=== PATIENT | female | born 1945 | race Caucasian/White ===

== ENCOUNTER 2020-11-16 09:44 | Day surgery (SDC) | payer MEDICARE, MEDICAID ==
[2020-11-10 12:05] LABS: Hemoglobin 14.9 g/dL (12.0-16.0); Mean Corpuscular HGB CONC 33.5 G/DL (32.0-36.0); Mean Corpuscular Hemoglobin 33.3 PG (27.0-33.0); Mean Corpuscular Volume 99.3 fl (80.0-100.0); Mean Platelet Volume 12.3 fl (7.4-10.4); Platelet Count 197 10x3/uL (130-400); RBC Distribution Width 12.4 % (11.5-14.5); Red Blood Cell (RBC) Count 4.48 10x6/uL (3.90-5.20); White Blood Cell (WBC) Count 6.4 10x3/uL (4.5-11.0)
[2020-11-10 22:45] LABS: SARS-CoV-2 MS2 Positive; SARS-CoV-2 N Gene Negative; SARS-CoV-2 S Gene Negative; SARS-CoV-2 by NAA Not Detected (NotDetected); SARS-CoV-2 orf1ab Negative
[2020-11-15 10:52] VITALS: BMI 27.4
[2020-11-16] MEDS ORDERED: Glycopyrrolate 0.2 MG/ML 5 ML SYRINGE ONE (09:52)
[2020-11-16] MEDS ORDERED: Lidocaine 1% PF 5 ML VIAL ONE (09:52)
[2020-11-16] MEDS ORDERED: Labetalol HCl 100 MG/20 ML VIAL ONE (09:52)
[2020-11-16] MEDS ORDERED: PROPOFOL 200 MG/20 ML VIAL ONE (09:52)
[2020-11-16] MEDS ORDERED: Ondansetron PF 4 MG/2 ML Vial ONE (09:52)
[2020-11-16] MEDS ORDERED: Rocuronium Bromide 10 MG/ML (10ML VIAL) ONE (09:52)
[2020-11-16] MEDS ORDERED: ePHEDrine 50 MG/ML VIAL ONE (09:52)
[2020-11-16] MEDS ORDERED: Dexamethasone 20 MG/5 ML VIAL ONE (09:52)
[2020-11-16] MEDS ORDERED: Gabapentin 300 MG CAP ONE (10:22)
[2020-11-16] MEDS ORDERED: Famotidine/PF 20 mg/2ml Vial ONE (10:23)
[2020-11-16] MEDS ORDERED: CeleCOXIB 100 MG CAP ONE (10:23)
[2020-11-16] MEDS ORDERED: Fentanyl 100 MCG/2 ML VIAL ONE (12:02)
[2020-11-16] MEDS ORDERED: HYDROmorphone 0.5 MG/0.5 ML SYRINGE ONE (12:02)
[2020-11-16] MEDS ORDERED: Lidocaine 1% w/Epinephrine 1:100K 20 ML VIAL ONE (12:11)
[2020-11-16] MEDS ORDERED: Bupivacaine 0.25% HCL 30 ML VIAL ONE (12:11)
[2020-11-16] MEDS ORDERED: Meperidine HCl/PF 25 MG/ML VIAL SLOW IVP PRN (14:29)
[2020-11-16] MEDS ORDERED: Promethazine HCl 25 MG/ML VIAL SLOW IVP PRN (14:29)
[2020-11-16] MEDS ORDERED: Ondansetron HCl/PF 4 MG/2 ML Vial IVP PRN (14:29)
[2020-11-16] MEDS ORDERED: HYDROmorphone 2 MG/ML VIAL SLOW IVP PRN (14:29)
[2020-11-16] MEDS ORDERED: Bisacodyl 10 MG SUPP PR PRN (15:15)
[2020-11-16] MEDS ORDERED: diphenhydrAMINE 25 MG CAP PO PRN (15:15)
[2020-11-16] MEDS ORDERED: Acetaminophen 325 MG TAB PO PRN (15:15)
[2020-11-16] MEDS ORDERED: Simethicone Chewable 80 MG TAB PO PRN (15:15)
[2020-11-16] MEDS ORDERED: Ondansetron PF 4 MG/2 ML Vial IVP PRN (15:15)
[2020-11-16] MEDS ORDERED: Morphine 2 MG/ML VIAL SLOW IVP PRN (15:15)
[2020-11-16] MEDS ORDERED: Zolpidem Tartrate 5 MG TAB PO PRN (15:18)
--- NOTE | 2020-11-16 17:36 | EKG ---
Test Reason : PREOP Blood Pressure : / mmHG Vent. Rate : 067 BPM Atrial Rate : 067 BPM P-R Int : 136 ms QRS Dur : 084 ms QT Int : 420 ms P-R-T Axes : 040 -19 042 degrees QTc Int : 443 ms Normal sinus rhythm Normal ECG Confirmed by Fanta SANTORO ([id number]) on 11/16/2020 5:35:48 PM Referred By: CHLOE Confirmed By:Fanta SANTORO
[2020-11-16] MEDS: traMADol HCl 50 MG TAB PO PRN ×2 (18:37→23:31)
[2020-11-16] MEDS ORDERED: Gabapentin 300 MG CAP PO SCH (21:00)
--- NOTE | 2020-11-17 06:34 | OP ---
DATE OF PROCEDURE: 11/16/2020 PREOPERATIVE DIAGNOSIS: A 75-year-old white female with symptomatic grade 3 cystocele, grade 2 uterine prolapse, and grade 2 rectocele. POSTOPERATIVE DIAGNOSIS: A 75-year-old white female with symptomatic grade 3 cystocele, grade 2 uterine prolapse, and grade 2 rectocele. PROCEDURES PERFORMED: 1. Robotic TLH with bilateral salpingectomy. 2. Anterior and posterior repairs. METAL FURNITURE REPAIRER SURGEON: Nola Crane PA-C ANESTHESIA: General endotracheal. ESTIMATED BLOOD LOSS: 50 mL. COMPLICATIONS: None. COUNTS: Correct x2. FINDINGS: 1. Normal-appearing bilateral postmenopausal fallopian tubes and ovaries. The patient desired ovarian preservation. 2. Normal-appearing small postmenopausal uterus. 3. Clear urine present in Bauman catheter postprocedure and bladder was watertight to fluid distention over 300 mL post hysterectomy. 4. Bilateral ureteral peristalsis visualized post hysterectomy. DISPOSITION: Recovery room, stable. DESCRIPTION OF PROCEDURE: The patient previously received informed consent in regard to surgery. She was taken back to the operating room, where she received a general endotracheal anesthetic agent without complications. She was then placed in the dorsal lithotomy position with the use of Rajiv stirrups. She was prepped and draped in usual sterile fashion, and a Bauman catheter was placed. A side-arm speculum was placed in the vagina. The anterior lip of cervix was grasped with single-tooth tenaculum. The uterus sounded to 7 cm, and a size 6 cm LAURA uterine manipulator with 3.5 cm cervical cup was placed. Attention was then turned to the abdomen after the speculum and tenaculum were removed. Perspective trocar sites were infiltrated with 0.5% Marcaine with epinephrine. A 12 mm supraumbilical incision was made. Veress needle was entered in the peritoneal cavity. The patient's pressure was less than 5 mm. Then, abdomen was insufflated with the patient's pressure of 15, approximately 5 L of carbon dioxide gas. Veress needle was then removed. A size 12 mm trocar was then placed and the laparoscope was introduced through the trocar sleeve confirming proper entry. Additional bilateral lower quadrant 8 mm trocars were placed under laparoscopic guidance along with the right upper quadrant 11 mm dental office assistant port. The patient was then placed in a more Trendelenburg position and then the robot was docked. I broke scrub and then proceeded to carry out the procedure from the operative console. My assistants remained at the bedside. The uterus was elevated from the pelvis. The uterosacrals were visualized and the course of the ureters were noted bilaterally in the pelvic sidewalls away from the proposed ligation of the uterosacrals. A 0 Vicryl suture was introduced into the operative field by my dental office assistant. I then used the [address] a double throw of the left uterosacral ligament approximately 2 cm from the posterior uterus, and the needle and excess suture were then removed through the right upper quadrant port. This was carried out again on the right uterosacral ligament in likewise fashion. We then proceeded to carry out the hysterectomy. The left fallopian tube was grasped by my dental office assistant. I incised the mesosalpinx with monopolar scissors and bipolar fenestrated cautery and removed the left fallopian tube out of the right upper quadrant dental office assistant port. The patient desires ovarian preservation, and the left ovary was normal in appearance. The left utero-ovarian ligament was coagulated and transected. Serial coagulation of broad ligament hugging close to the uterus was carried out until the left round ligament was reached. It was coagulated and transected. The anterior leaf of the broad ligament was entered. The vesicouterine peritoneum was incised in layering technique dropping the bladder safely past the cervical vaginal margin. The left uterine vessels were skeletonized in the internal cervical os region and it was coagulated there. This was carried out in likewise fashion on the right side again removing the right fallopian tube, coagulating the broad ligament to the round ligament, transecting that in completion of the vesicouterine peritoneal dissection, dropping the bladder past the cervical vaginal margin. Uterine vessels again were skeletonized and they were coagulated in internal cervical os region. Prior to the anterior colpotomy, the bladder was distended, confirming a safe distance from the anticipated anterior colpotomy, which was confirmed. The anterior colpotomy was then made over the cervical cup starting from 12 to 3 and 12 to 9 o'clock and completing from 6 to 3 and 6 to 9 o'clock. The specimen was removed into the vaginal vault. The uterosacral sutures were then tied to secure the knot around each and the strings were brought back into the vaginal vault. Pedicle sites again were noted to be hemostatic. Pelvis was irrigated and suctioned. Then, we undocked the robot and removed the trocar sleeves. A deep stitch of 0 Vicryl was placed in the umbilical defect area with 0 Vicryl suture. Remainder of the trocar sites were closed with 4-0 Monocryl suture and Dermabond. We then proceeded to carry out the vaginal portion of the surgery. The legs were raised in a more operative fashion for dorsal lithotomy position. A weighted speculum was placed in the vaginal vault. The 2 sutures from the uterosacral ligaments were brought down through the vagina and tagged with hemostats. I then placed an 0 Vicryl suture in the posterior vaginal cuff in the midline. This was tagged. Additional throws of an 0 Vicryl suture at the angles of the vaginal cuff were thrown by the uterosacral ligaments bilaterally and these were tied. That suture was tied and then it was tied to the uterosacral tagged sutures. Again, these were both tied for later markers. The anterior vaginal cuff was grasped with 2 Allis clamps. The anterior vaginal mucosa was infiltrated with 0.5% Marcaine with epinephrine. Midline incision of the vaginal mucosa was made with Metzenbaum scissors, carried about 1.5 cm from the urethral meatus. The edges of the vaginal mucosa were then grasped with Allis clamps for counter traction. I incised and dissected the cystocele both bluntly and sharply. The endopelvic fascia was then replicated in the midline with 2-0 Vicryl suture, repairing the cystocele defect and achieving hemostasis. The anterior vaginal mucosa was then closed with interrupted [id number] stitches of 2-0 Vicryl suture. Once this was completed, we then closed the vaginal cuff. The vaginal cuff was closed with 2-0 Vicryl suture starting from each angle and with interrupted [id number] throws completing horizontal fashion of the vaginal cuff. The excess suture ends were then trimmed and cut. We then carried out the posterior vaginal repair of the rectocele. Two Allis clamps were placed at 4 o'clock and 8 o'clock position of the vaginal introitus. The posterior vaginal mucosa was infiltrated with 1% lidocaine with epinephrine. A midline incision of the posterior vaginal mucosa was made with Metzenbaum scissors, it was carried up to the vaginal cuff line. The apex of the posterior mucosa near the vaginal cuff was then tagged with an 0 Vicryl suture in a [id number] stitch fashion and this was tagged for future marking of the upper apex and mucosal closure. The rectocele defect was then dissected sharply and bluntly reducing it and then once this had been adequately reduced, the endopelvic fascia was then replicated in the midline with 2-0 Vicryl suture starting most cephalad by the apex of the posterior vaginal incision and working out toward the introitus replicating the endopelvic fascia and repairing the rectocele defect. Once this was accomplished, the posterior vaginal mucosa was trimmed and the posterior vaginal mucosa was then closed incorporating some of the endopelvic fascia that rid the space with 2-0 Vicryl sutures in a [id number] stitch fashion. Hemostasis was assured. Once this was completed, we then packed the vaginal vault with a moistened Kerlix and then the Bauman catheter was noted to be draining clear urine. We then awakened the patient from anesthesia and transferred to recovery room in stable condition. Job ID: [id number]
[2020-11-17 07:56] VITALS: BP 145/67; TEMP 98.5
[2020-11-17] MEDS: traMADol HCl 50 MG TAB PO PRN (08:36)
[2020-11-17] MEDS ORDERED: Bupropion 150 MG XL TAB PO SCH (09:00)
[2020-11-17] MEDS ORDERED: valACYclovir 500 MG TAB PO SCH (09:00)
[2020-11-17] MEDS ORDERED: Lisinopril 20 MG TAB PO SCH (09:00)
--- NOTE | 2020-11-17 09:55 | CON ---
DATE OF CONSULTATION: 11/17/2020 SUBJECTIVE: The patient has good pain control, tolerating diet and did void this morning and ambulating without difficulty. OBJECTIVE: VITAL SIGNS: Stable. She has made excellent urine output throughout the night after the Bauman catheter has been discontinued. ABDOMEN: All trocar sites are intact. There is expected postop tenderness. No abnormal oozing noted. PERINEUM: Perineal exam, the sutures are intact without any excessive bleeding. EXTREMITIES: Nontender. ASSESSMENT AND PLAN: This postop day #1 from a robotic total laparoscopic hysterectomy, bilateral salpingectomy with anterior and posterior repair. The patient is doing well. We will do observe voiding trials to ensure that the patient is adequately emptying her bladder prior to expected discharge home today. She has a followup in 2 and 6 weeks. Pathology is pending at the time of this dictation. Job ID: [id number]
== END 2020-11-17 10:59 | disposition home or self-care (01) ==
LOC: SDC 09:44 → 3SE 15:15 → SDC 11-17 10:59
PROVIDERS: ATTEND Obstetrics & Gynecology
PROC: 0UT94ZZ Resection of Uterus, Percutaneous Endoscopic Approach (ICD-10-PCS; principal; 2020-11-16)
PROC: 0UT74ZZ Resection of Bilateral Fallopian Tubes, Percutaneous Endoscopic Approach (ICD-10-PCS; 2020-11-16)
PROC: 0JQC0ZZ Repair Pelvic Region Subcutaneous Tissue and Fascia, Open Approach (ICD-10-PCS; 2020-11-16)
PROC: 0JQC0ZZ Repair Pelvic Region Subcutaneous Tissue and Fascia, Open Approach (ICD-10-PCS; 2020-11-16)
DX: D25.9 Leiomyoma of uterus, unspecified (principal); N81.2 Incomplete uterovaginal prolapse; N84.0 Polyp of corpus uteri; N72 Inflammatory disease of cervix uteri; N87.9 Dysplasia of cervix uteri, unspecified; I10 Essential (primary) hypertension; F41.9 Anxiety disorder, unspecified; G62.9 Polyneuropathy, unspecified; Z79.899 Other long term (current) drug therapy; Z91.018 Allergy to other foods
CPT/HCPCS: 57260; 58571; 85027; 86850; 86900; 86901; 88307; 93005; U0003; 36415; 87635; 93010; J0690; J1100; J1170; J2405; J2704; J3010; J3490; S0020; S0028

== ENCOUNTER 2021-05-05 07:42 | Outpatient (CLI) | payer MEDICARE ==
[2021-05-05] MEDS ORDERED: Iopamidol 370 76% 100 ML VIAL ONE (10:07)
== END 2021-05-05 07:43 | disposition home or self-care (01) ==
LOC: BICCT 07:42
PROVIDERS: ATTEND Registered Nurse
DX: I71.2 Thoracic aortic aneurysm, without rupture (principal)
CPT/HCPCS: 71275; 82565

== ENCOUNTER 2021-05-05 08:28 | Emergency (ER) | payer MEDICARE ==
[2021-05-05] MEDS ORDERED: niCARdipine 20MG In NaCl 20 MG/200 ML BAG ONE (08:38)
[2021-05-05] MEDS ORDERED: Labetalol HCl 100 MG/20 ML VIAL ONE (08:50)
[2021-05-05 08:56] LABS: #Basophils 0.1 thou/uL (0.0-0.2); #Eosinphils 0.1 thou/uL (0.0-0.7); #Lymphocytes 1.3 thou/uL (1.20-3.40); #Monocytes 0.4 thou/uL (0.11-0.59); #Neutrophils 3.1 thou/uL (1.40-6.50); %Basophils 1.9 % (0.0-1.0); %Eosinophils 2.7 % (0.0-10.0); %Monocytes 7.4 % (0.0-10.0); Hemoglobin 11.1 g/dL (12.0-16.0); Mean Corpuscular HGB CONC 32.1 g/dL (32.0-36.0); Mean Corpuscular Hemoglobin 30.5 pg (27.0-31.0); Mean Corpuscular Volume 95.1 fL (78.0-98.0); Mean Platelet Volume 9.1 fL (7.4-10.4); Platelet Count 224 thou/uL (130-400); RBC Distribution Width 12.6 % (11.5-14.5); Red Blood Cell (RBC) Count 3.64 mill/uL (4.20-5.40)
[2021-05-05 09:15] LABS: INR-International Normal Ratio 1.1; Prothrombin Time 14.4 sec (12.0-14.7)
[2021-05-05] MEDS ORDERED: Esmolol 2,500 MG/250 ML 250 ML IVPB SCH (09:15)
[2021-05-05 09:23] LABS: ALT (SGPT) 12 U/L (8-55); AST (SGOT) 19 U/L (5-34); Alkaline Phosphatase 69 U/L (40-110); Anion Gap 14 mmol/L (10-20); BUN (Urea Nitrogen) 11 mg/dL (9.8-20.1); Bilirubin, Total 0.4 mg/dL (0.2-1.2); Calc. Creatinine Clearance 0 mL/min (70-130); Carbon Dioxide 23 mmol/L (23-31); Chloride 105 mmol/L (98-107); Globulin 2.7 g/dL (2.4-3.5); Glucose 93 mg/dL (83-110); Potassium 3.7 mmol/L (3.5-5.1); Protein, Total 6.7 g/dL (5.8-8.1); Sodium 138 mmol/L (136-145)
[2021-05-05 10:20] LABS: SARS-CoV-2 NAA Rapid Test Not Detected (NotDetected)
== END 2021-05-05 09:22 | disposition short-term general hospital (02) ==
LOC: ERS 08:28
DX: I71.00 Dissection of unspecified site of aorta (principal); Z20.822 Contact with and (suspected) exposure to COVID-19; Z79.899 Other long term (current) drug therapy
CPT/HCPCS: 71275; 80053; 82565; 83605; 84484; 85025; 85610; 86850; 86900; 86901; 93005; U0002; U0005; 96365; 96375; Q9967

== ENCOUNTER 2021-08-07 10:00 | Inpatient (IN) | payer MEDICARE ==
[2021-08-07 11:00] LABS: #Lymphocytes 0.5 thou/uL (1.20-3.40); #Monocytes 0.1 thou/uL (0.11-0.59); #Neutrophils 8.5 thou/uL (1.40-6.50); %Basophils 0.4 % (0.0-1.0); %Eosinophils 0.5 % (0.0-10.0); %Lymphocytes 5.1 % (21.0-51.0); %Monocytes 1.5 % (0.0-10.0); %Neutrophils 92.5 % (42.0-75.0); Hemoglobin 11.9 g/dL (12.0-16.0); Mean Corpuscular HGB CONC 31.2 g/dL (32.0-36.0); Mean Corpuscular Hemoglobin 29.5 pg (27.0-31.0); Mean Corpuscular Volume 94.5 fL (78.0-98.0); Mean Platelet Volume 9.2 fL (7.4-10.4); Platelet Count 224 thou/uL (130-400); RBC Distribution Width 16.9 % (11.5-14.5); Red Blood Cell (RBC) Count 4.03 mill/uL (4.20-5.40); White Blood Cell (WBC) Count 9.2 thou/uL (4.8-10.8)
[2021-08-07 11:12] LABS: Bilirubin Negative (Negative); Blood, Urine Negative (Negative); Clarity Turbid (Clear); Glucose, Urine (Dipstick) Normal (Negative); Ketone, Urine 20 mg/dL (Negative); Leukocyte 250 Leu/uL (Negative); Nitrite Negative (Negative); Protein, Urine (Dipstick) 20 mg/dL (Neg-Trace); RBC/HPF 0-3 HPF (0-3); Specific Gravity, Urine 1.017 (1.002-1.036); Urobilinogen Normal mg/dL (Less than 2)
[2021-08-07 11:13] LABS: Bacteria/HPF Rare-Few HPF (None Seen)
[2021-08-07] MEDS ORDERED: Vancomycin 1 GM/200 ML BAG ONE (11:21)
[2021-08-07] MEDS ORDERED: Cefepime 2 GM VIAL ONE (11:21)
[2021-08-07 11:26] LABS: ALT (SGPT) 11 U/L (8-55); AST (SGOT) 27 U/L (5-34); Albumin 3.7 g/dL (3.4-4.8); Alkaline Phosphatase 120 U/L (40-110); Anion Gap 15 mmol/L (10-20); BUN (Urea Nitrogen) 18 mg/dL (9.8-20.1); Bilirubin, Total 0.3 mg/dL (0.2-1.2); Calc. Creatinine Clearance 0 mL/min (70-130); Calcium 9.3 mg/dL (7.8-10.44); Carbon Dioxide 30 mmol/L (23-31); Chloride 101 mmol/L (98-107); Globulin 3.9 g/dL (2.4-3.5); Glucose 109 mg/dL (83-110); Potassium 4.6 mmol/L (3.5-5.1); Protein, Total 7.6 g/dL (5.8-8.1); Sodium 141 mmol/L (136-145)
[2021-08-07 11:41] LABS: SARS-CoV-2 NAA Rapid Test Not Detected (NotDetected)
[2021-08-07 12:06] LABS: INR-International Normal Ratio 1.2; PTT 31.5 sec (22.9-36.1); Prothrombin Time 15.8 sec (12.0-14.7)
[2021-08-07 13:09] LABS: Actual Bicarbonate (HCO3a) 27.1 mEq/L (22-28); Analyzer IN Cardio ER; Base Excess (BEa) 0.4 mEq/L (-2.0 to +3.0); CO2 Tension 53.1 mmHg (35.0-45.0); Calcium, Ionized (arterial) 1.19 mmol/L (1.12-1.30); Carboxyhemoglobin (COHb) 0.7 gm% (0.0-3.0); Hemoglobin (Hb) 11.4 g/dL (12.0-16.0); O2 Tension (PaO2), arterial 64.6 mmHg (> 70.0); Potassium - ABG Lab 3.85 mmol/L (3.70-5.30); pH, Arterial 7.33 (7.35-7.45)
[2021-08-07 13:14] LABS: Puncture Site RRA
[2021-08-07 13:15] LABS: ALV-art Gradient 68.665 mmHg (0-20)
[2021-08-07] MEDS ORDERED: Aspirin 300 MG Suppository ONE (13:48)
[2021-08-07] MEDS ORDERED: Furosemide 40 MG/4 ML VIAL ONE (13:48)
[2021-08-07] MEDS ORDERED: Nitroglycerin 2% Ointment 1 INCH/1 GM Packet ONE (13:48)
[2021-08-07] MEDS ORDERED: Iopamidol-370 76% 500 ML 1 ML ONE (15:35)
[2021-08-07 16:05] LABS: Troponin I 0.051 ng/mL (< 0.028)
[2021-08-07 18:44] LABS: Troponin I 0.064 ng/mL (< 0.028)
[2021-08-07] MEDS ORDERED: Bisacodyl 5 MG TAB PO PRN (20:36)
[2021-08-07] MEDS ORDERED: Vancomycin 1 GM in Premix Bag 1 BAG IVPB SCH (20:36)
[2021-08-07] MEDS ORDERED: Ondansetron PF 4 MG/2 ML Vial IVP PRN (20:36)
[2021-08-07] MEDS ORDERED: Acetaminophen 650 MG Suppository PR PRN (20:36)
[2021-08-07] MEDS: Thiamine HCl 200 MG/2 ML VIAL SLOW IVP SCH (21:58)
[2021-08-08 04:04] LABS: #Basophils 0.1 thou/uL (0.0-0.2); #Eosinphils 0.3 thou/uL (0.0-0.7); #Lymphocytes 0.6 thou/uL (1.20-3.40); #Monocytes 0.7 thou/uL (0.11-0.59); #Neutrophils 6.2 thou/uL (1.40-6.50); %Basophils 0.8 % (0.0-1.0); %Eosinophils 3.4 % (0.0-10.0); %Lymphocytes 7.2 % (21.0-51.0); %Neutrophils 79.6 % (42.0-75.0); Hemoglobin 11.8 g/dL (12.0-16.0); Mean Corpuscular HGB CONC 31.4 g/dL (32.0-36.0); Mean Corpuscular Hemoglobin 29.5 pg (27.0-31.0); Mean Corpuscular Volume 94.1 fL (78.0-98.0); Mean Platelet Volume 8.8 fL (7.4-10.4); Platelet Count 191 thou/uL (130-400); RBC Distribution Width 16.7 % (11.5-14.5); White Blood Cell (WBC) Count 7.8 thou/uL (4.8-10.8)
[2021-08-08 04:23] LABS: Anion Gap 12 mmol/L (10-20); BUN (Urea Nitrogen) 17 mg/dL (9.8-20.1); Calc. Creatinine Clearance 74 mL/min (70-130); Calcium 8.8 mg/dL (7.8-10.44); Carbon Dioxide 34 mmol/L (23-31); Chloride 99 mmol/L (98-107); Glucose 95 mg/dL (83-110); Potassium 3.4 mmol/L (3.5-5.1); Sodium 142 mmol/L (136-145)
[2021-08-08] MEDS ORDERED: VANCOMYCIN 1.25 GM/250 ML BAG 1.25 GM in Premix Bag 1 BAG IVPB SCH (06:00)
[2021-08-08] MEDS: Furosemide 40 MG/4 ML VIAL SLOW IVP SCH ×2 (06:34→13:13)
[2021-08-08] MEDS ORDERED: Cefepime 1 GM in Sodium Chloride 0.9% 100 ML IVPB SCH (12:00)
[2021-08-08] MEDS: Metoprolol Tartrate 25 MG TAB PO SCH (22:43)
[2021-08-08] MEDS: Acetaminophen 325 MG TAB PO PRN (22:44)
[2021-08-08] MEDS: Thiamine HCl 200 MG/2 ML VIAL SLOW IVP SCH (22:46)
[2021-08-09 05:31] LABS: %Eosinophils 3.4 % (0.0-10.0); %Lymphocytes 10.3 % (21.0-51.0); %Monocytes 7.1 % (0.0-10.0); %Neutrophils 78.2 % (42.0-75.0); Hemoglobin 11.7 g/dL (12.0-16.0); Mean Corpuscular HGB CONC 32.6 g/dL (32.0-36.0); Mean Corpuscular Hemoglobin 30.3 pg (27.0-31.0); Mean Corpuscular Volume 92.9 fL (78.0-98.0); Mean Platelet Volume 8.4 fL (7.4-10.4); Platelet Count 201 thou/uL (130-400); RBC Distribution Width 16.6 % (11.5-14.5); Red Blood Cell (RBC) Count 3.87 mill/uL (4.20-5.40); White Blood Cell (WBC) Count 7.5 thou/uL (4.8-10.8)
[2021-08-09 05:32] LABS: #Basophils 0.1 thou/uL (0.0-0.2); #Eosinphils 0.3 thou/uL (0.0-0.7); #Lymphocytes 0.8 thou/uL (1.20-3.40); #Monocytes 0.5 thou/uL (0.11-0.59); #Neutrophils 5.9 thou/uL (1.40-6.50)
[2021-08-09 05:54] LABS: Vancomycin, Trough 11.6 ug/mL
[2021-08-09 05:58] LABS: BUN (Urea Nitrogen) 14 mg/dL (9.8-20.1); Calc. Creatinine Clearance 73 mL/min (70-130); Calcium 8.8 mg/dL (7.8-10.44); Glucose 95 mg/dL (83-110)
[2021-08-09] MEDS ORDERED: Vancomycin HCl 1.25 GM in Sodium Chloride 0.9% 250 ML 250 ML IVPB SCH (06:00)
[2021-08-09 06:12] LABS: Anion Gap 16 mmol/L (10-20); Carbon Dioxide 31 mmol/L (23-31); Chloride 96 mmol/L (98-107); Potassium 3.2 mmol/L (3.5-5.1); Sodium 140 mmol/L (136-145)
[2021-08-09] MEDS: Furosemide 40 MG/4 ML VIAL SLOW IVP SCH ×2 (06:19→15:05)
[2021-08-09] MEDS: Metoprolol Tartrate 25 MG TAB PO SCH ×2 (10:17→20:05)
[2021-08-09] MEDS: Potassium Chloride 20 MEQ TAB PO SCH ×2 (10:17→15:05)
[2021-08-09] MEDS: ALPRAZolam 0.25 MG TAB PO SCH (20:06)
[2021-08-09] MEDS: Ciprofloxacin 500 MG TAB PO SCH (20:06)
[2021-08-09] MEDS: Thiamine HCl 200 MG/2 ML VIAL SLOW IVP SCH (20:07)
[2021-08-10 04:15] LABS: #Basophils 0.1 thou/uL (0.0-0.2); #Eosinphils 0.2 thou/uL (0.0-0.7); #Lymphocytes 0.9 thou/uL (1.20-3.40); #Monocytes 0.9 thou/uL (0.11-0.59); #Neutrophils 6.8 thou/uL (1.40-6.50); %Basophils 0.7 % (0.0-1.0); %Eosinophils 2.6 % (0.0-10.0); %Lymphocytes 10.1 % (21.0-51.0); %Monocytes 10.3 % (0.0-10.0); %Neutrophils 76.3 % (42.0-75.0); Hemoglobin 12.5 g/dL (12.0-16.0); Mean Corpuscular HGB CONC 30.7 g/dL (32.0-36.0); Mean Corpuscular Hemoglobin 28.6 pg (27.0-31.0); Mean Corpuscular Volume 93.1 fL (78.0-98.0); Mean Platelet Volume 8.6 fL (7.4-10.4); Platelet Count 231 thou/uL (130-400); RBC Distribution Width 16.6 % (11.5-14.5); Red Blood Cell (RBC) Count 4.35 mill/uL (4.20-5.40); White Blood Cell (WBC) Count 8.9 thou/uL (4.8-10.8)
[2021-08-10 04:34] LABS: Anion Gap 17 mmol/L (10-20); BUN (Urea Nitrogen) 14 mg/dL (9.8-20.1); Calc. Creatinine Clearance 78 mL/min (70-130); Calcium 9.4 mg/dL (7.8-10.44); Carbon Dioxide 30 mmol/L (23-31); Chloride 99 mmol/L (98-107); Glucose 99 mg/dL (83-110); Potassium 3.6 mmol/L (3.5-5.1); Sodium 142 mmol/L (136-145)
[2021-08-10] MEDS: Furosemide 40 MG/4 ML VIAL SLOW IVP SCH ×2 (06:14→15:23)
[2021-08-10] MEDS: Ciprofloxacin 500 MG TAB PO SCH ×2 (06:14→21:27)
[2021-08-10] MEDS: ALPRAZolam 0.25 MG TAB PO SCH (08:24)
[2021-08-10] MEDS: Metoprolol Tartrate 25 MG TAB PO SCH ×2 (08:24→21:28)
[2021-08-10] MEDS ORDERED: ALPRAZolam 0.25 MG TAB PO PRN (14:48)
[2021-08-10] MEDS: Thiamine HCl 200 MG/2 ML VIAL SLOW IVP SCH (21:28)
[2021-08-11] MEDS: Ciprofloxacin 500 MG TAB PO SCH ×2 (05:15→21:16)
[2021-08-11] MEDS: Furosemide 40 MG/4 ML VIAL SLOW IVP SCH ×2 (05:15→15:24)
[2021-08-11] MEDS: Metoprolol Tartrate 25 MG TAB PO SCH ×2 (08:49→21:17)
[2021-08-11] MEDS: Thiamine HCl 200 MG/2 ML VIAL SLOW IVP SCH (21:17)
[2021-08-12] MEDS: Acetaminophen 325 MG TAB PO PRN (01:37)
[2021-08-12 05:21] LABS: BUN (Urea Nitrogen) 21 mg/dL (9.8-20.1); Calc. Creatinine Clearance 66 mL/min (70-130); Calcium 8.9 mg/dL (7.8-10.44); Glucose 103 mg/dL (83-110)
[2021-08-12 05:30] LABS: Anion Gap 15 mmol/L (10-20); Carbon Dioxide 33 mmol/L (23-31); Chloride 96 mmol/L (98-107); Potassium 3.4 mmol/L (3.5-5.1); Sodium 141 mmol/L (136-145)
[2021-08-12] MEDS: Furosemide 40 MG/4 ML VIAL SLOW IVP SCH (06:18)
[2021-08-12] MEDS: Ciprofloxacin 500 MG TAB PO SCH (06:18)
[2021-08-12] MEDS ORDERED: Potassium Chloride 20 MEQ TAB PO SCH (07:45)
[2021-08-12] MEDS: Metoprolol Tartrate 25 MG TAB PO SCH (08:20)
[2021-08-12 12:08] VITALS: BP 120/57; TEMP 97.6
[2021-08-12 12:54] VITALS: BMI 22.8
[2021-08-13] MEDS ORDERED: Furosemide 40 MG TAB PO SCH (07:30)
== END 2021-08-12 15:40 | disposition hospice, home (50) | DRG 291 ==
LOC: ERS 10:00 → ERHOLD 14:55 → IMCU/EMU 20:17 → 2NO 08-10 16:30
PROVIDERS: ADMIT Internal Medicine; ATTEND Internal Medicine
DX: I11.0 Hypertensive heart disease with heart failure (principal); G93.41 Metabolic encephalopathy; J96.01 Acute respiratory failure with hypoxia; J18.9 Pneumonia, unspecified organism; Z66 Do not resuscitate; I35.1 Nonrheumatic aortic (valve) insufficiency; R62.7 Adult failure to thrive; Z20.822 Contact with and (suspected) exposure to COVID-19; I50.33 Acute on chronic diastolic (congestive) heart failure; Z91.011 Allergy to milk products; Z79.899 Other long term (current) drug therapy; Z68.22 Body mass index [BMI] 22.0-22.9, adult; Z98.890 Other specified postprocedural states; Z86.79 Personal history of other diseases of the circulatory system; Z13.1 Encounter for screening for diabetes mellitus; E78.2 Mixed hyperlipidemia
CPT/HCPCS: 0240U; 36415; 36600; 70450; 71045; 71275; 80048; 80053; 80061; 80202; 81003; 81015; 82805; 83605; 83880; 84484; 85025; 85610; 85730; 86803; 87040; 87045; 87046; 87077; 87086; 87186; 87324; 87427; 87449; 93005; 93306; 94660; 97139; J0692; J1940; J1956; J2405; J3370; J3411; J3490; J7050; Q9967